=== PATIENT | female | born 1985 | race Caucasian/White ===

== ENCOUNTER 2017-05-19 10:12 | Emergency (ER) | payer SELFPAY ==
[2017-05-19] MEDS ORDERED: BENADRYL IM ONE (10:15)
--- NOTE | 2017-05-19 10:18 | Emergency Department Report ---
Chief Complaint: Allergic Reaction Stated Complaint: ALLERGIC REACTION Time Seen by Provider: 05/19/17 10:13 - HPI History of Present Illness: PT states she was out walking her dogs and she accidentally stepped in an ant pile. 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 - ROS Review of Systems: + itching - swelling - Exam Physical Exam: pt looks well, non toxic. pt is scratching. no rash noted lungs cta MSE screening note: Focused history and physical exam performed. Due to findings the following was ordered: meds ED Disposition for MSE Condition: Stable
[2017-05-19 10:41] VITALS: BP 120/98
== END 2017-05-19 15:41 | disposition left against medical advice (07) ==
LOC: ED 10:12
DX: T78.40XA Allergy, unspecified, initial encounter (principal); Z53.21 Procedure and treatment not carried out due to patient leaving prior to being seen by health care provider
CPT/HCPCS: J1200; J2930